=== PATIENT | male | born 1960 | race Caucasian/White ===

== ENCOUNTER 2017-06-11 23:48 | Emergency (ER) | payer BC, OTHER ==
[~2017-06-11] VITALS: Ht 177.8 cm; Wt 81.7 kg
[2017-06-12] MEDS ORDERED: FLOMAX0.4 MG PO (00:21)
[2017-06-12 02:15] LABS: ABSOLUTE NEUTROPHILS 8.1 thou/uL (1.4-8.2); BASOPHILS 0.8 % (0.0-2.0); EOSINOPHILS 3.2 % (0.0-3.0); HEMATOCRIT 38.2 % (42.0-52.0); HEMOGLOBIN 13.3 gm/dL (14.0-18.0); LYMPHOCYTES 21.5 % (24.0-44.0); MCH 30.2 pg (26.0-34.0); MCHC 34.7 g/dL (28.0-37.0); MONOCYTES 7.9 % (1.0-8.0); PLATELET COUNT 286 thou/uL (150-400); POLYS 66.6 % (36.0-66.0); RBC 4.39 mil/uL (4.50-6.00); RDW 13.1 % (10.5-14.5); WBC 12.2 thou/uL (4.0-11.0)
[2017-06-12 02:16] LABS: MANUAL DIFF NO
[2017-06-12 02:25] LABS: CALCIUM 9.2 mg/dL (8.5-10.1); CREATININE 1.2 mg/dL (0.7-1.3); POTASSIUM 3.9 mmol/L (3.5-5.1)
[2017-06-12] MEDS ORDERED: KEFLEX500 MG PO (04:32)
[2017-06-12] MEDS ORDERED: IBUPROFEN 800800 M1 PO (04:32)
[2017-06-12 04:50] VITALS: BP 142/88
== END 2017-06-12 04:34 | disposition home or self-care (01) ==
LOC: ER 23:48
PROVIDERS: Emergency Medicine
DX: L03.116 Cellulitis of left lower limb (principal); L73.9 Follicular disorder, unspecified; N40.0 Benign prostatic hyperplasia without lower urinary tract symptoms; F12.10 Cannabis abuse, uncomplicated